=== PATIENT | female | born 1955 | race Caucasian/White ===

== ENCOUNTER 2023-08-09 20:27 | Emergency (ER) | payer BC, OTHER ==
[~2023-08-09] VITALS: Ht 157.5 cm; Wt 81.6 kg
[2023-08-09 20:36] VITALS: BP_SYST 140; RESP 18; TEMP 98.3; O2SAT 97
[2023-08-09] MEDS ORDERED: ACET-2634 PO (21:43)
[2023-08-09 21:50] VITALS: BP_SYST 138; PULSE 70; RESP 18; TEMP 98.2; O2SAT 97
== END 2023-08-09 21:50 | disposition home or self-care (01) ==
LOC: SED 20:27
DX: S63.92XA Sprain of unspecified part of left wrist and hand, initial encounter (principal); S83.91XA Sprain of unspecified site of right knee, initial encounter; S83.92XA Sprain of unspecified site of left knee, initial encounter; E11.9 Type 2 diabetes mellitus without complications; Z79.899 Other long term (current) drug therapy; W18.40XA Slipping, tripping and stumbling without falling, unspecified, initial encounter; Y93.89 Activity, other specified; Y92.89 Other specified places as the place of occurrence of the external cause; Y99.8 Other external cause status
CPT/HCPCS: 99284